=== PATIENT | male | born 1980 | race Caucasian/White ===

== ENCOUNTER 2017-08-25 08:56 | Outpatient (CLI) | payer MEDICARE, MEDICAID ==
[2017-08-25] MEDS ORDERED: Sodium Chloride 0.9% 15 ML NEB ONE (11:11)
[2017-08-25] MEDS ORDERED: Lidocaine 2% Jelly 5 ML TUBE ONE (11:11)
--- NOTE | 2017-08-25 11:57 | PRG ---
DATE OF SERVICE: 08/25/2017 HISTORY: Mr. Faizan Heath is a very pleasant 36-year-old gentleman previously seen in the [facility] for a wound subsequent to excision of a pilonidal cyst. Today, the patient presents with an ulceration of the dorsum of the right foot. The patient states that after wearing a pair of Western boots, he noted ecchymosis and erythema of the dorsum of his right foot when taking off his right boot in early July of this year. The patient states that the ecchymosis and erythema developed into an ulceration associated with eschar. The patient states he has been washing the ulceration with [place] soap and keeping the ulceration clean, dry, and covered with a sock. The patient states that he scheduled an appointment with Dr. Escalante for evaluation of the ulceration of the dorsum of the right foot. He states that at a subsequent visit at the time of his routine checkup, he was referred to the [facility]ound Center for further evaluation and treatment. PAST MEDICAL HISTORY: 1. Diabetes mellitus. 2. Hypertension. PAST SURGICAL HISTORY: Excision of pilonidal cyst on 06/27/[address] Luis Miguel Wisdom. MEDICATIONS: 1. [place]. 2. Abilify. 3. Zoloft. 4. Toprol. 5. Clonazepam. 6. Clozapine. PHYSICAL EXAMINATION: VITAL SIGNS: Temperature 98.0, pulse 107, respirations 19, blood pressure 134/ 89. Accu-Chek 497. EXTREMITIES: An ulceration over the dorsum of the right foot is present which measures approximately 2.0 x 2.8 cm. The entire wound bed is covered by dry stable eschar. No serous or purulent drainage is associated with the wound. No cellulitis of the right foot is appreciated. No maceration of the skin of the periwound is noted. A dorsalis pedis and posterior tibial pulse are both palpable on the right. No significant edema of the right foot is appreciated on exam today. ASSESSMENT AND PLAN: 1. Ulceration of dorsum of right foot as described above. Dressing changes of Silvercel, 4 x 4s, and Kerlix will be initiated today. These dressing changes are to be performed on a daily basis or alternatively three times per week after cleansing and irrigation. I will see Mr. Heath again in two weeks. No antibiotics will be prescribed today based upon the appearance of the wound. The patient understands and is in agreement with the preceding treatment plan. 2. Diabetes mellitus. The patient's Accu-Chek in clinic today is 497. The patient has been told that for optimal wound healing, his blood glucoses should remain below 150. 3. Hypertension. MTDD
== END 2017-08-25 08:57 | disposition home or self-care (01) ==
LOC: WCC 08:56
PROVIDERS: ATTEND Family Medicine
DX: E11.621 Type 2 diabetes mellitus with foot ulcer (principal); L97.519 Non-pressure chronic ulcer of other part of right foot with unspecified severity; I10 Essential (primary) hypertension
CPT/HCPCS: 97602; 99203; A4218; G0463

== ENCOUNTER 2017-09-08 08:51 | Outpatient (CLI) | payer MEDICARE, OTHER ==
--- NOTE | 2017-09-08 10:01 | PRG ---
DATE OF SERVICE: 09/08/2017 HISTORY: Mr. Faizan Heath is a very pleasant 36-year-old gentleman who presents to the [facility] Center f or evaluation of an ulceration of the dorsum of the right foot. The patient previously stated that a fter wearing a pair of Western boots, he noted ecchymosis and erythema of the dorsum of his right lillie t when taking off his right boot in early July of this year. The patient stated that the ecchymos is and erythema developed into an ulceration associated with eschar. The patient stated he had been washing the ulceration with [place]uro soap and keeping the ulceration clean, dry, and covered with a s ock prior to being seen in the Wound Center. Also prior to being seen in the Wound Center, the cari ent stated he scheduled an appointment with Dr. Escalante for evaluation of the ulceration of the dorsum of the right foot. He stated that at a subsequent visit with Dr. Escalante at time of his routine [facility], he was referred to the Wound Center for further evaluation and treatment. After being seen in [facility], dressing changes of Silvercel, 4 x 4s, and Kerlix were initiated. PHYSICAL EXAMINATION: VITAL SIGNS: Temperature 97.9, pulse 92, respirations 18, blood pressure 131/80. Accu-Chek 343. EXTREMITIES: An ulceration of the dorsum of the right foot is present which measures approximately 2 .7 x 2.0 cm. The dimensions of the wound at the time of the patient's last visit were approximately 2.8 x 2.0 cm. Almost the entire wound bed is covered by dry stable eschar. No serous or purulent dr santos is associated with the wound. No cellulitis of the right foot is appreciated. No maceration of the skin of the periwound is noted. Dorsalis pedis and posterior tibial pulse are both palpable o n the right. No significant edema of the right foot is present on exam today. ASSESSMENT AND PLAN: 1. Ulceration of dorsum of right foot as described above. Dressing changes of Silvercel, 4 x 4s, an d Kerlix will be continued on a daily basis or alternatively three times per week after cleansing and irrigation. I will see Mr. Heath again in 3 weeks. 2. Diabetes mellitus. The patient's Accu-Chek in clinic today is 343. The patient has been told th at for optimal wound healing, his blood glucoses should remain below 150. 3. Hypertension.
== END 2017-09-08 08:52 | disposition home or self-care (01) ==
LOC: WCC 08:51
PROVIDERS: ATTEND Family Medicine
DX: E11.621 Type 2 diabetes mellitus with foot ulcer (principal); L97.519 Non-pressure chronic ulcer of other part of right foot with unspecified severity; I10 Essential (primary) hypertension

== ENCOUNTER 2017-09-29 09:03 | Outpatient (CLI) | payer MEDICARE, OTHER ==
--- NOTE | 2017-09-29 10:18 | PRG ---
DATE OF SERVICE: 09/29/2017 HISTORY: Mr. Faizan Heath is a very pleasant 36-year-old gentleman who presents to the Wound Center f or evaluation of an ulceration of the dorsum of the right foot. The patient previously stated that a fter wearing a pair of Western boots, he noted ecchymosis and erythema of the dorsum of his right lillie t when taking off his right boot in early July of this year. The patient stated that the ecchymos is and erythema developed into an ulceration associated with eschar. The patient stated he had been washing the ulceration with [place] soap and keeping the ulceration clean, dry, and covered with a so ck prior to being seen in the Wound Center. Also, prior to being seen in the Wound Center, the patie nt stated he scheduled an appointment with Dr. Escalante for evaluation of the ulceration of the dorsum of the right foot. He stated that at a subsequent visit with Dr. Escalante, at the time of a routine eckup, he was referred to the Wound Center for further evaluation and treatment. After being seen in the Wound Center, dressing changes of Silvercel, 4 x 4s, and Kerlix were initiated. PHYSICAL EXAMINATION: VITAL SIGNS: Temperature 98.0, pulse 100, respirations 18, blood pressure 136/78. Accu-Chek 278. EXTREMITIES: An ulceration of the dorsum of the right foot is present which measures approximately 2 .2 x 1.4 cm. The dimensions of the wound at the time of the patient's last visit were approximately 2.7 x 2.0 cm. The wound is granulating. No purulent drainage is associated with the wound. No eryt debora of the skin surrounding the wound is present. No maceration of the skin of the periwound is not ed. A posterior tibial pulse is easily palpable on the right. No significant edema of the right lillie t is present on exam today. ASSESSMENT AND PLAN: 1. Ulceration of dorsum of right foot as described above. Dressing changes of Silvercel, 4 x 4s, an d Kerlix will be continued on a daily basis or alternatively three times per week after cleansing and irrigation. I will see Mr. Heath again in two weeks. 2. Diabetes mellitus. The patient's Accu-Chek in clinic today is 278. The patient has been reminde d that for optimal wound healing, his blood glucoses should remain below 150. 3. Hypertension.
[2017-09-30] MEDS ORDERED: Sodium Chloride 0.9% 15 ML NEB ONE (12:32)
== END 2017-09-29 09:04 | disposition home or self-care (01) ==
LOC: WCC 09:03
PROVIDERS: ATTEND Family Medicine
DX: E11.621 Type 2 diabetes mellitus with foot ulcer (principal); L97.519 Non-pressure chronic ulcer of other part of right foot with unspecified severity; I10 Essential (primary) hypertension
CPT/HCPCS: 36416; 97602

== ENCOUNTER 2017-10-19 09:13 | Outpatient (CLI) | payer MEDICARE, MEDICAID ==
--- NOTE | 2017-10-19 11:06 | PRG ---
DATE OF SERVICE: 10/19/2017 HISTORY: Mr. Faizan Heath is a very pleasant 36-year-old gentleman who presents to the Wound Center for evaluation of an ulceration of the dorsum of the right foot. The patient previously stated that after wearing a pair of Western boots he noted ecchymosis and erythema of the dorsum of his right foot when taking off his right boot in early July of this year. The patient stated that the ecchymosis and erythema developed into an ulceration associated with eschar. The patient stated he had been washing the ulceration with castile soap and keeping the ulceration clean, dry, and covered with a sock prior to being seen in the Wound Center. Also prior to being seen in the Wound Center, the patient stated, he scheduled an appointment with Dr. Escalante for evaluation of the ulceration of the dorsum of the right foot. He stated that at a subsequent visit with Dr. Escalante at the time of a routine checkup, he was referred to the Wound Center for further evaluation and treatment. After being seen in the Wound Center, dressing changes of Silvercel, 4 x 4s, and Kerlix were initiated. The patient presents to clinic today with his ulceration open to air. He states that he has had no drainage associated with his wound for "a long time." PHYSICAL EXAMINATION: VITAL SIGNS: Temperature 98.3, pulse 102, respirations 18, blood pressure 139/ 89. Accu-Chek 434. EXTREMITIES: The ulceration of the dorsum of the right foot has healed completely. A posterior tibial pulse is easily palpable on the right. No significant edema of the right foot is present on exam today. ASSESSMENT AND PLAN: 1. Ulceration of dorsum of right foot. As stated above, the ulceration has completely healed. Mr. Heath will be discharged from clinic today with follow up on a p.r.n. basis. 2. Diabetes mellitus. The patient's Accu-Chek in clinic today is 434. 3. Hypertension. MTDD
== END 2017-10-19 09:14 | disposition home or self-care (01) ==
LOC: WCC 09:13
PROVIDERS: ATTEND Family Medicine
DX: E11.621 Type 2 diabetes mellitus with foot ulcer (principal); L97.519 Non-pressure chronic ulcer of other part of right foot with unspecified severity; I10 Essential (primary) hypertension
CPT/HCPCS: 97602

== ENCOUNTER 2023-05-24 16:41 | Inpatient (IN) | payer MEDICARE, MEDICAID ==
[2023-05-24 17:18] LABS: Hematocrit 44.3 % (42.0-52.0); Hemoglobin 14.7 g/dL (14.0-18.0); Mean Corpuscular HGB CONC 33.2 g/dL (32.0-36.0); Mean Corpuscular Hemoglobin 28.7 pg (27.0-31.0); Mean Corpuscular Volume 86.4 fl (78.0-98.0); Mean Platelet Volume 11.5 fL (7.4-10.4); Platelet Count 297 10x3/uL (130-400); RBC Distribution Width 13.9 % (11.5-14.5); Red Blood Cell (RBC) Count 5.13 mill/uL (4.70-6.10); White Blood Cell (WBC) Count 31.3 10x3/uL (4.8-10.8)
[2023-05-24 17:19] LABS: Delete Auto Diff?? YES; Manual Diff?? YES
[2023-05-24 17:24] LABS: Actual Bicarbonate (HCO3v) 23.3 mEq/L (22-28); Base Excess -1.7 mEq/L (-2.0 to +3.0); Calcium, Ionized (venous) 1.05 mmol/L (1.16-1.32); Chloride (VBG) 92 mmol/L (98-106); Hematocrit-VBG 44 % (42.0-52.0); Potassium (VBG) 4.56 mmol/L (3.70-5.30); Sodium 129 mmol/L (133-146); pH (venous) 7.379 (7.32-7.43)
[2023-05-24] MEDS ORDERED: Sodium Chloride 0.9% 100 ML ONE (17:26)
[2023-05-24] MEDS ORDERED: Cefepime 2 GM VIAL ONE (17:26)
[2023-05-24 17:43] LABS: Anisocytosis SLIGHT = 6-15 cells HPF (0-5); Band 19 % (5-11); Lymphocytes 2 % (21-51); Monocytes 4 % (0-10); Neutrophil 75 % (42-75); Platelet Adequacy Comment Platelets Normal; Polychromasia SLIGHT = 2-3 cells HPF (0-2); RBC Morphology Within Normal Limits; Total Cell Count 100
[2023-05-24] MEDS ORDERED: Clindamycin/D5W 900 MG in Premix 1 BAG IVPB SCH (17:45)
[2023-05-24] MEDS ORDERED: Vancomycin 1 GM/200 ML (FROZEN) BAG ONE (17:47)
[2023-05-24] MEDS ORDERED: Ondansetron PF 4 MG/2 ML Vial ONE ×2 (17:47→20:59)
[2023-05-24] MEDS ORDERED: Morphine 4 MG/ML VIAL ONE (17:47)
[2023-05-24 17:49] LABS: ALT (SGPT) 44 U/L (8-55); AST (SGOT) 38 U/L (5-34); Albumin 3.3 g/dL (3.5-5.0); Alkaline Phosphatase 203 U/L (40-110); Anion Gap 21 mmol/L (10-20); BUN (Urea Nitrogen) 16 mg/dL (8.9-20.6); Bilirubin, Total 0.6 mg/dL (0.2-1.2); Calc. Creatinine Clearance 0 mL/min (70-130); Calcium 9.5 mg/dL (7.8-10.44); Carbon Dioxide 21 mmol/L (22-29); Chloride 91 mmol/L (98-107); Estimated GFR 108; Glucose 548 mg/dL (70-105); Lipase 29 U/L (8-78); Potassium 4.6 mmol/L (3.5-5.1); Protein, Total 7.3 g/dL (6.0-8.3); Sodium 128 mmol/L (136-145)
[2023-05-24 18:03] LABS: Bacteria/HPF None Seen HPF (None Seen); Bilirubin Negative (Negative); Blood, Urine Negative (Negative); CAUTI Indications for Culture Urological Procedure; Clarity Clear (Clear); Glucose, Urine (Dipstick) Greater than 1000 mg/dL (Negative); Ketone, Urine 40 mg/dL (Negative); Leukocyte Negative Leu/uL (Negative); Nitrite Negative (Negative); Protein, Urine (Dipstick) 20 mg/dL (Neg-Trace); RBC/HPF 0-3 HPF (0-3); Specific Gravity, Urine 1.021 (1.002-1.036); Squamous Epithelial None Seen HPF (0-3); Urobilinogen Normal mg/dL (Less than 2); WBC/HPF 0-3 HPF (0-3)
[2023-05-24 18:05] LABS: Urine Culture Reflex Yes Yes
[2023-05-24] MEDS ORDERED: Acetaminophen 325 MG TAB PO PRN (18:13)
[2023-05-24] MEDS ORDERED: Ondansetron PF 4 MG/2 ML Vial IVP PRN (18:13)
[2023-05-24] MEDS ORDERED: Dextrose 5 %-0.45 % NaCl 1,000 ML IV PRN (18:16)
[2023-05-24] MEDS ORDERED: NS 0.9% w/ 20 MEQ KCL 1,000 ML IV PRN ×2 (18:16)
[2023-05-24] MEDS ORDERED: Sodium Chloride 0.9% 1,000 ML IV PRN ×4 (18:16)
[2023-05-24] MEDS ORDERED: Electrolyte Replacement Protocol 1 EACH IVPB SCH (18:16)
[2023-05-24] MEDS ORDERED: Dextrose 50% Abboject 50 ML SYRINGE SLOW IVP PRN (18:16)
[2023-05-24] MEDS ORDERED: HUMULIN R 100 UNITS in Sodium Chloride 0.9% 100 ML IVPB SCH (18:30)
[2023-05-24] MEDS ORDERED: INSULIN REGULAR IN 0.9 % NACL 100 UNITS/100 ML BAG ONE (18:42)
[2023-05-24] MEDS ORDERED: NS 0.9% w/ 20 MEQ KCL 1,000 ML ONE (19:29)
[2023-05-24] MEDS ORDERED: Norepinephrine 4 MG/4 ML VIAL ONE (20:30)
[2023-05-24] MEDS ORDERED: Vasopressin 20 UNITS/ML VIAL ONE (20:30)
[2023-05-24] MEDS ORDERED: Fentanyl 250 MCG/5 ML VIAL ONE (20:31)
[2023-05-24] MEDS ORDERED: HYDROmorphone 0.5 MG/0.5 ML SYRINGE ONE (20:31)
[2023-05-24 20:40] LABS: Lactic Acid 2.1 mmol/L (0.5-2.2)
[2023-05-24] MEDS ORDERED: Albumin 5% 1,000 ML ONE (20:52)
[2023-05-24] MEDS ORDERED: Rocuronium Bromide 10 MG/ML (10ML VIAL) ONE (20:59)
[2023-05-24] MEDS ORDERED: PROPOFOL 200 MG/20 ML VIAL ONE (20:59)
[2023-05-24] MEDS ORDERED: Lidocaine 1% PF 5 ML VIAL ONE (20:59)
[2023-05-24] MEDS ORDERED: Succinylcholine 200 MG/10 ml SYRINGE FS ONE (20:59)
[2023-05-24 21:17] LABS: INR-International Normal Ratio 1.4; PTT 35.9 sec (22.9-36.1); Prothrombin Time 17.9 sec (12.0-14.7)
[2023-05-24 21:24] LABS: Anion Gap 15 mmol/L (10-20); BUN (Urea Nitrogen) 16 mg/dL (8.9-20.6); Calc. Creatinine Clearance 0 mL/min (70-130); Calcium 8.5 mg/dL (7.8-10.44); Carbon Dioxide 21 mmol/L (22-29); Chloride 95 mmol/L (98-107); Estimated GFR 114; Sodium 127 mmol/L (136-145)
[2023-05-24 21:32] LABS: Glucose 549 mg/dL (70-105)
[2023-05-24] MEDS ORDERED: Piperacillin/Tazobactam 3.375 GM in Sodium Chloride 0.9% 100 ML IVPB SCH (21:45)
[2023-05-24] MEDS ORDERED: SUGAMMADEX SODIUM 200 MG/2 ML VIAL ONE (22:35)
[2023-05-24] MEDS ORDERED: Ondansetron HCl/PF 4 MG/2 ML Vial IVP PRN (23:22)
[2023-05-24] MEDS ORDERED: Morphine 2 MG/ML VIAL SLOW IVP PRN (23:28)
[2023-05-25 00:56] LABS: Anion Gap 19 mmol/L (10-20); BUN (Urea Nitrogen) 15 mg/dL (8.9-20.6); Calc. Creatinine Clearance 193 mL/min (70-130); Calcium 8.5 mg/dL (7.8-10.44); Carbon Dioxide 19 mmol/L (22-29); Chloride 101 mmol/L (98-107); Estimated GFR 115; Glucose 261 mg/dL (70-105); Potassium 4.2 mmol/L (3.5-5.1); Sodium 135 mmol/L (136-145)
[2023-05-25] MEDS: Acetaminophen 325 MG TAB PO SCH ×4 (01:00→17:30)
[2023-05-25] MEDS ORDERED: Piperacillin/Tazobactam 3.375 GM in Sodium Chloride 0.9% 100 ML IVPB SCH (01:30)
[2023-05-25] MEDS: D5 1/2 NS w/20 mEq KCL 1,000 ML IV PRN ×3 (02:00→09:46)
[2023-05-25] MEDS: Vancomycin (BATCH) 1.75 GM in Premix 1 BAG IVPB SCH ×3 (03:01→17:30)
[2023-05-25 04:39] LABS: Mean Corpuscular HGB CONC 32.6 g/dL (32.0-36.0); Mean Corpuscular Hemoglobin 28.8 pg (27.0-31.0); Mean Corpuscular Volume 88.3 fl (78.0-98.0); Mean Platelet Volume 11.1 fL (7.4-10.4); Platelet Count 225 10x3/uL (130-400); RBC Distribution Width 14.1 % (11.5-14.5); White Blood Cell (WBC) Count 30.3 10x3/uL (4.8-10.8)
[2023-05-25 04:54] LABS: Hemoglobin 11.5 g/dL (14.0-18.0)
[2023-05-25 04:55] LABS: Delete Auto Diff?? YES; Hematocrit 35.3 % (42.0-52.0); Manual Diff?? YES
[2023-05-25 05:03] LABS: Hemoglobin A1c 8.9 % (4.0-6.0)
[2023-05-25] MEDS ORDERED: Sevoflurane 250 ML INH ANEST BOTTLE ONE (05:20)
[2023-05-25 05:37] LABS: ALT (SGPT) 30 U/L (8-55); AST (SGOT) 22 U/L (5-34); Albumin 2.8 g/dL (3.5-5.0); Alkaline Phosphatase 138 U/L (40-110); Anion Gap 14 mmol/L (10-20); BUN (Urea Nitrogen) 14 mg/dL (8.9-20.6); Bilirubin, Total 0.8 mg/dL (0.2-1.2); Calc. Creatinine Clearance 221 mL/min (70-130); Calcium 7.8 mg/dL (7.8-10.44); Carbon Dioxide 22 mmol/L (22-29); Chloride 103 mmol/L (98-107); Estimated GFR 120; Globulin 2.6 g/dL (2.4-3.5); Glucose 187 mg/dL (70-105); Potassium 4.4 mmol/L (3.5-5.1); Protein, Total 5.4 g/dL (6.0-8.3); Sodium 135 mmol/L (136-145)
[2023-05-25 05:38] LABS: Band 12 % (5-11); CellaVision Operator ID lab.sh2; Dohle Bodies SLIGHT; Lymphocytes 2 % (21-51); Macrocytosis SLIGHT = 6-15 cells HPF (0-5); Monocytes 10 % (0-10); Neutrophil 76 % (42-75); Platelet Adequacy Comment Platelets Normal; Polychromasia SLIGHT = 2-3 cells HPF (0-2); Total Cell Count 101
[2023-05-25] MEDS ORDERED: Cefepime 2 GM in Sodium Chloride 0.9% 100 ML IVPB SCH (06:00)
[2023-05-25] MEDS: Piperacillin/Tazobactam 3.375 GM in Sodium Chloride 0.9% 100 ML IVPB SCH ×3 (06:59→22:01)
[2023-05-25] MEDS: Losartan 25 MG TAB PO SCH (09:11)
[2023-05-25] MEDS ORDERED: PROPOFOL 20 ML ONE (09:17)
[2023-05-25] MEDS ORDERED: Ondansetron PF 4 MG/2 ML Vial ONE ×2 (09:19→11:30)
[2023-05-25] MEDS ORDERED: Rocuronium Bromide 10 MG/ML (10ML VIAL) ONE ×2 (09:19→11:30)
[2023-05-25] MEDS ORDERED: Lidocaine 1% PF 5 ML VIAL ONE ×2 (09:19→11:30)
[2023-05-25] MEDS ORDERED: Succinylcholine 200 MG/10 ml SYRINGE FS ONE ×2 (09:19→11:30)
[2023-05-25] MEDS ORDERED: fentaNYL PF 100 MCG/2 ML SYRINGE ONE (10:52)
[2023-05-25] MEDS ORDERED: Midazolam HCl 2 mg/2 ml Vial ONE (10:52)
[2023-05-25] MEDS ORDERED: PROPOFOL 200 MG/20 ML VIAL ONE (11:30)
[2023-05-25] MEDS ORDERED: Glycopyrrolate 0.2 MG/ML 5 ML SYRINGE ONE ×2 (11:30→12:37)
[2023-05-25] MEDS ORDERED: NEOSTIGMINE 3 MG/3 ML SYR 3 MG/3 ML SYRINGE ONE ×2 (11:30→12:37)
[2023-05-25] MEDS ORDERED: Sodium Hypochlorite 0.5% 473 ML BOT TOP SCH (12:15)
[2023-05-25] MEDS ORDERED: fentaNYL 50 mcg/mL 1 mL Vial ONE (13:48)
[2023-05-25] MEDS ORDERED: Insulin Glargine 30 UNITS/0.3 ML VIAL SC SCH (14:41)
[2023-05-25] MEDS: Sodium Chloride 0.9% 1,000 ML IV SCH (15:22)
[2023-05-25 17:18] LABS: Vancomycin, Trough 23.7 ug/mL
[2023-05-25] MEDS ORDERED: Glucagon 1 MG/ML KIT IM PRN (17:36)
[2023-05-25] MEDS ORDERED: Dextrose 5% in Water 1,000 ML IV PRN (17:36)
[2023-05-25] MEDS: HumaLOG 300 UNITS/3 ML VIAL SC PRN (18:13)
[2023-05-25] MEDS: Insulin Glargine 30 UNITS/0.3 ML VIAL SC SCH (22:00)
[2023-05-26] MEDS: Acetaminophen 325 MG TAB PO SCH ×5 (00:34→22:50)
[2023-05-26] MEDS: Vancomycin (BATCH) 1.5 GM in Premix 1 BAG IVPB SCH ×2 (02:22→13:00)
[2023-05-26 04:11] LABS: Hematocrit 30.6 % (42.0-52.0); Hemoglobin 9.5 g/dL (14.0-18.0); Mean Corpuscular Hemoglobin 28.4 pg (27.0-31.0); Mean Platelet Volume 11.6 fL (7.4-10.4); Platelet Count 204 10x3/uL (130-400); RBC Distribution Width 14.5 % (11.5-14.5); Red Blood Cell (RBC) Count 3.35 mill/uL (4.70-6.10); White Blood Cell (WBC) Count 22.3 10x3/uL (4.8-10.8)
[2023-05-26 04:13] LABS: Manual Diff?? YES; Mean Corpuscular Volume 91.3 fl (78.0-98.0)
[2023-05-26 04:14] LABS: Delete Auto Diff?? YES
[2023-05-26] MEDS: Sodium Chloride 0.9% 1,000 ML IV SCH ×2 (04:24→17:09)
[2023-05-26 04:41] LABS: ALT (SGPT) 44 U/L (8-55); AST (SGOT) 47 U/L (5-34); Albumin 2.3 g/dL (3.5-5.0); Alkaline Phosphatase 184 U/L (40-110); Anion Gap 13 mmol/L (10-20); BUN (Urea Nitrogen) 8 mg/dL (8.9-20.6); Bilirubin, Total 0.8 mg/dL (0.2-1.2); Calc. Creatinine Clearance 215 mL/min (70-130); Calcium 7.4 mg/dL (7.8-10.44); Carbon Dioxide 18 mmol/L (22-29); Chloride 105 mmol/L (98-107); Estimated GFR 119; Globulin 2.6 g/dL (2.4-3.5); Potassium 4.2 mmol/L (3.5-5.1); Protein, Total 4.9 g/dL (6.0-8.3); Sodium 132 mmol/L (136-145)
[2023-05-26 04:48] LABS: Glucose 462 mg/dL (70-105)
[2023-05-26 04:49] LABS: Band 29 % (5-11); CellaVision Operator ID LAB.CLH1; Eosinophils 1 % (0-10); Hypochromia SLIGHT = 6-15 cells HPF (0-5); Lymphocytes 4 % (21-51); Metamyelocyte 1 % (0-0); Monocytes 3 % (0-10); Neutrophil 61 % (42-75); Platelet Adequacy Comment Platelets Normal; Polychromasia SLIGHT = 2-3 cells HPF (0-2); Total Cell Count 101
[2023-05-26] MEDS: HumaLOG 300 UNITS/3 ML VIAL SC PRN ×4 (05:21→17:09)
[2023-05-26] MEDS: Piperacillin/Tazobactam 3.375 GM in Sodium Chloride 0.9% 100 ML IVPB SCH ×3 (05:58→22:51)
[2023-05-26] MEDS: Sodium Hypochlorite 0.25% Solution 480 ML BOT TOP SCH (07:08)
[2023-05-26] MEDS: Insulin Glargine 30 UNITS/0.3 ML VIAL SC SCH (07:09)
[2023-05-26] MEDS: Losartan 25 MG TAB PO SCH (07:09)
[2023-05-26] MEDS ORDERED: Insulin Glargine 30 UNITS/0.3 ML VIAL SC SCH ×3 (09:00→21:00)
[2023-05-26] MEDS: Senokot S 8.6-50 MG TAB PO SCH ×2 (10:05→20:04)
[2023-05-26] MEDS: Polyethylene Glycol 3350 17 GM Packet PO SCH (10:17)
[2023-05-26] MEDS: Morphine 4 MG/ML VIAL SLOW IVP PRN ×3 (12:07→22:53)
[2023-05-27] MEDS ORDERED: Ketorolac Tromethamine 30 MG/ML VIAL IVP PRN (00:14)
[2023-05-27] MEDS: Vancomycin (BATCH) 1.5 GM in Premix 1 BAG IVPB SCH ×2 (01:23→14:43)
[2023-05-27] MEDS: Morphine 4 MG/ML VIAL SLOW IVP PRN ×4 (04:02→21:16)
[2023-05-27 04:52] LABS: Hematocrit 30.6 % (42.0-52.0); Hemoglobin 9.6 g/dL (14.0-18.0); Mean Corpuscular HGB CONC 31.4 g/dL (32.0-36.0); Mean Corpuscular Hemoglobin 28.4 pg (27.0-31.0); Mean Corpuscular Volume 90.5 fl (78.0-98.0); Mean Platelet Volume 11.9 fL (7.4-10.4); Platelet Count 227 10x3/uL (130-400); Red Blood Cell (RBC) Count 3.38 mill/uL (4.70-6.10); White Blood Cell (WBC) Count 18.7 10x3/uL (4.8-10.8)
[2023-05-27 05:16] LABS: Delete Auto Diff?? YES; Manual Diff?? YES
[2023-05-27] MEDS: Piperacillin/Tazobactam 3.375 GM in Sodium Chloride 0.9% 100 ML IVPB SCH ×2 (05:16→16:31)
[2023-05-27] MEDS: Sodium Chloride 0.9% 1,000 ML IV SCH ×2 (05:16→12:29)
[2023-05-27] MEDS: Acetaminophen 325 MG TAB PO SCH ×3 (05:17→17:02)
[2023-05-27 05:18] LABS: Anion Gap 12 mmol/L (10-20); BUN (Urea Nitrogen) 7 mg/dL (8.9-20.6); Calc. Creatinine Clearance 248 mL/min (70-130); Calcium 7.6 mg/dL (7.8-10.44); Carbon Dioxide 18 mmol/L (22-29); Chloride 105 mmol/L (98-107); Estimated GFR 122; Glucose 223 mg/dL (70-105); Sodium 131 mmol/L (136-145)
[2023-05-27] MEDS ORDERED: EPINEPHrine 1 MG/ML VIAL ONE (06:43)
[2023-05-27] MEDS ORDERED: Bupivacaine 0.25% HCL 30 ML VIAL ONE (06:44)
[2023-05-27] MEDS ORDERED: Dexmedetomidine 200 MCG/2 ML VIAL ONE (07:07)
[2023-05-27] MEDS ORDERED: Ketamine In 0.9 % NaCl 50 MG/5 ML SYRINGE ONE (07:07)
[2023-05-27] MEDS ORDERED: PROPOFOL 20 ML ONE (07:11)
[2023-05-27] MEDS ORDERED: fentaNYL PF 100 MCG/2 ML SYRINGE ONE ×3 (07:11→09:27)
[2023-05-27] MEDS: Senokot S 8.6-50 MG TAB PO SCH ×2 (07:16→21:21)
[2023-05-27] MEDS: Polyethylene Glycol 3350 17 GM Packet PO SCH (07:16)
[2023-05-27] MEDS: Losartan 25 MG TAB PO SCH (07:16)
[2023-05-27] MEDS: Sodium Hypochlorite 0.25% Solution 480 ML BOT TOP SCH (07:16)
[2023-05-27] MEDS ORDERED: HYDROmorphone 2 MG/ML VIAL SLOW IVP PRN (07:25)
[2023-05-27] MEDS ORDERED: Promethazine HCl 25 MG/ML VIAL IM PRN (07:25)
[2023-05-27] MEDS ORDERED: Ondansetron HCl/PF 4 MG/2 ML Vial IVP PRN (07:25)
[2023-05-27] MEDS ORDERED: PROPOFOL 200 MG/20 ML VIAL ONE (07:34)
[2023-05-27] MEDS ORDERED: Rocuronium Bromide 10 MG/ML (10ML VIAL) ONE ×2 (07:34→08:04)
[2023-05-27] MEDS ORDERED: Ondansetron PF 4 MG/2 ML Vial ONE ×2 (07:34→08:04)
[2023-05-27] MEDS ORDERED: Glycopyrrolate 0.2 MG/ML 5 ML SYRINGE ONE ×2 (07:34→08:50)
[2023-05-27] MEDS ORDERED: NEOSTIGMINE 3 MG/3 ML SYR 3 MG/3 ML SYRINGE ONE ×2 (07:34→08:50)
[2023-05-27 08:04] LABS: Band 9 % (5-11); CellaVision Operator ID LAB.GE; Eosinophils 1 % (0-10); Lymphocytes 3 % (21-51); Monocytes 1 % (0-10); Myelocyte 1 % (0-0); Neutrophil 85 % (42-75); Platelet Adequacy Comment Platelets Normal; Polychromasia SLIGHT = 2-3 cells HPF (0-2); Total Cell Count 98
[2023-05-27] MEDS ORDERED: Non-Formulary Item 1 EACH (Lithium Carbonate [Lithium Carbonate] 300 MG Tablet) PO SCH (09:00)
[2023-05-27] MEDS ORDERED: Non-Formulary Item 1 EACH (Sertraline Hcl [Zoloft] 50 MG Tab) PO SCH (09:00)
[2023-05-27] MEDS ORDERED: Meperidine HCl/PF 25 MG/ML VIAL ONE (09:21)
[2023-05-27] MEDS ORDERED: HYDROmorphone 0.5 MG/0.5 ML SYRINGE ONE (09:42)
[2023-05-27] MEDS ORDERED: fentaNYL 50 mcg/mL 1 mL Vial ONE (10:23)
[2023-05-27] MEDS: Lithium Carbonate 150 MG CAP PO SCH ×2 (10:50→21:20)
[2023-05-27] MEDS: Sertraline 25 MG TAB PO SCH (10:50)
[2023-05-27] MEDS: Aripiprazole 15 MG TAB PO SCH (10:50)
[2023-05-27] MEDS: Insulin Glargine 30 UNITS/0.3 ML VIAL SC SCH ×2 (10:50→21:21)
[2023-05-27] MEDS: HumaLOG 300 UNITS/3 ML VIAL SC PRN ×3 (12:25→21:19)
[2023-05-27] MEDS: Ketorolac Tromethamine 30 MG/ML VIAL IVP SCH (15:11)
[2023-05-27] MEDS ORDERED: CLOZAPINE 25 MG PO SCH (21:00)
[2023-05-27] MEDS ORDERED: Non-Formulary Item 1 EACH (Fenofibrate [Fenofibrate] 150 MG Capsule) PO SCH (21:00)
[2023-05-27] MEDS: Fenofibrate Nanocrystallized 145 MG TAB PO SCH (21:21)
[2023-05-27] MEDS: Glimepiride 4 MG TAB PO SCH (21:21)
[2023-05-28] MEDS: Acetaminophen 325 MG TAB PO SCH ×4 (00:33→17:27)
[2023-05-28] MEDS: Piperacillin/Tazobactam 3.375 GM in Sodium Chloride 0.9% 100 ML IVPB SCH ×3 (00:34→16:18)
[2023-05-28] MEDS: Morphine 4 MG/ML VIAL SLOW IVP PRN ×3 (02:23→11:53)
[2023-05-28] MEDS: Vancomycin (BATCH) 1.75 GM in Premix 1 BAG IVPB SCH ×2 (02:48→14:01)
[2023-05-28] MEDS: Sodium Chloride 0.9% 1,000 ML IV SCH ×2 (02:49→22:06)
[2023-05-28 04:13] LABS: Anion Gap 10 mmol/L (10-20); BUN (Urea Nitrogen) 8 mg/dL (8.9-20.6); Calc. Creatinine Clearance 246 mL/min (70-130); Calcium 7.9 mg/dL (7.8-10.44); Carbon Dioxide 23 mmol/L (22-29); Chloride 107 mmol/L (98-107); Estimated GFR 124; Glucose 219 mg/dL (70-105); Potassium 3.6 mmol/L (3.5-5.1); Sodium 136 mmol/L (136-145)
[2023-05-28] MEDS: HumaLOG 300 UNITS/3 ML VIAL SC PRN ×2 (06:26→11:01)
[2023-05-28] MEDS: Polyethylene Glycol 3350 17 GM Packet PO SCH (08:02)
[2023-05-28] MEDS: Senokot S 8.6-50 MG TAB PO SCH ×2 (08:02→20:25)
[2023-05-28] MEDS: Insulin Glargine 30 UNITS/0.3 ML VIAL SC SCH ×2 (08:02→20:27)
[2023-05-28] MEDS: Lithium Carbonate 150 MG CAP PO SCH ×2 (08:03→20:24)
[2023-05-28] MEDS: Losartan 25 MG TAB PO SCH (08:03)
[2023-05-28] MEDS: Sertraline 25 MG TAB PO SCH (08:03)
[2023-05-28] MEDS: Aripiprazole 15 MG TAB PO SCH (08:04)
[2023-05-28] MEDS ORDERED: FLU VACC QS2023-24(6MOS UP)/PF 60 MCG/0.5 ML SYRINGE IM ONE (09:00)
[2023-05-28] MEDS: Sodium Hypochlorite 0.25% Solution 480 ML BOT TOP SCH (12:28)
[2023-05-28] MEDS: HYDROcodone/Acetaminophen 5/325 mg Tablet PO PRN ×2 (13:56→18:39)
[2023-05-28] MEDS: Ketorolac Tromethamine 30 MG/ML VIAL IVP SCH (17:27)
[2023-05-28] MEDS: Glimepiride 4 MG TAB PO SCH (20:24)
[2023-05-28] MEDS: Fenofibrate Nanocrystallized 145 MG TAB PO SCH (20:24)
[2023-05-29] MEDS: Piperacillin/Tazobactam 3.375 GM in Sodium Chloride 0.9% 100 ML IVPB SCH ×3 (00:48→16:01)
[2023-05-29] MEDS: Acetaminophen 325 MG TAB PO SCH ×4 (00:51→17:22)
[2023-05-29] MEDS: HYDROcodone/Acetaminophen 5/325 mg Tablet PO PRN ×3 (01:10→20:01)
[2023-05-29] MEDS: Morphine 4 MG/ML VIAL SLOW IVP PRN ×3 (01:52→22:15)
[2023-05-29] MEDS: Vancomycin (BATCH) 1.75 GM in Premix 1 BAG IVPB SCH ×2 (02:33→14:40)
[2023-05-29 04:26] LABS: Anion Gap 13 mmol/L (10-20); BUN (Urea Nitrogen) 8 mg/dL (8.9-20.6); Calc. Creatinine Clearance 298 mL/min (70-130); Calcium 7.6 mg/dL (7.8-10.44); Carbon Dioxide 22 mmol/L (22-29); Chloride 110 mmol/L (98-107); Estimated GFR 128; Glucose 120 mg/dL (70-105); Potassium 3.3 mmol/L (3.5-5.1); Sodium 142 mmol/L (136-145)
[2023-05-29] MEDS: Senokot S 8.6-50 MG TAB PO SCH ×2 (07:48→20:03)
[2023-05-29] MEDS: Losartan 25 MG TAB PO SCH (07:48)
[2023-05-29] MEDS: Potassium Chloride 20 MEQ in Premix 1 BAG IVPB SCH ×2 (07:48→10:17)
[2023-05-29] MEDS: Sodium Hypochlorite 0.25% Solution 480 ML BOT TOP SCH (07:48)
[2023-05-29] MEDS: Polyethylene Glycol 3350 17 GM Packet PO SCH (07:48)
[2023-05-29] MEDS: Insulin Glargine 30 UNITS/0.3 ML VIAL SC SCH ×2 (07:48→20:03)
[2023-05-29] MEDS: Sertraline 25 MG TAB PO SCH (07:49)
[2023-05-29] MEDS: Lithium Carbonate 150 MG CAP PO SCH ×2 (07:49→20:03)
[2023-05-29] MEDS: Aripiprazole 15 MG TAB PO SCH (07:53)
[2023-05-29] MEDS ORDERED: Ondansetron PF 4 MG/2 ML Vial ONE ×2 (12:16→12:48)
[2023-05-29] MEDS ORDERED: Dexmedetomidine 200 MCG/2 ML VIAL ONE (12:16)
[2023-05-29] MEDS ORDERED: Rocuronium Bromide 10 MG/ML (10ML VIAL) ONE ×2 (12:16→12:48)
[2023-05-29] MEDS ORDERED: fentaNYL PF 100 MCG/2 ML SYRINGE ONE (12:16)
[2023-05-29] MEDS ORDERED: PROPOFOL 20 ML ONE (12:16)
[2023-05-29] MEDS ORDERED: Dexamethasone 4 mg/ml Vial ONE (12:16)
[2023-05-29] MEDS ORDERED: Morphine 4 MG/ML VIAL ONE (12:27)
[2023-05-29] MEDS ORDERED: PHENYLEPHRINE-NS 100 MCG/ML 10 ML SYRINGE ONE ×2 (12:48→14:28)
[2023-05-29] MEDS ORDERED: Lidocaine 1% PF 5 ML VIAL ONE (12:48)
[2023-05-29] MEDS ORDERED: NEOSTIGMINE 3 MG/3 ML SYR 3 MG/3 ML SYRINGE ONE ×2 (12:48→14:47)
[2023-05-29] MEDS ORDERED: PROPOFOL 200 MG/20 ML VIAL ONE (12:48)
[2023-05-29] MEDS ORDERED: Glycopyrrolate 0.2 MG/ML 5 ML SYRINGE ONE ×2 (12:48→14:47)
[2023-05-29] MEDS ORDERED: Sodium Hypochlorite 0.5% 473 ML BOT TOP SCH (14:15)
[2023-05-29] MEDS ORDERED: Ondansetron HCl/PF 4 MG/2 ML Vial IVP PRN (15:09)
[2023-05-29] MEDS ORDERED: HYDROmorphone 2 MG/ML VIAL SLOW IVP PRN (15:09)
[2023-05-29] MEDS ORDERED: Promethazine HCl 25 MG/ML VIAL IM PRN (15:09)
[2023-05-29] MEDS ORDERED: HYDROmorphone 0.5 MG/0.5 ML SYRINGE ONE (15:10)
[2023-05-29] MEDS ORDERED: fentaNYL 50 mcg/mL 1 mL Vial ONE ×2 (15:17→15:28)
[2023-05-29] MEDS: Ketorolac Tromethamine 30 MG/ML VIAL IVP SCH (15:24)
[2023-05-29] MEDS: Sodium Chloride 0.9% 1,000 ML IV SCH (16:00)
[2023-05-29] MEDS ORDERED: Vancomycin (BATCH) 1.75 GM in Premix 1 BAG IVPB SCH (16:00)
[2023-05-29] MEDS: Fenofibrate Nanocrystallized 145 MG TAB PO SCH (20:03)
[2023-05-29] MEDS: Glimepiride 4 MG TAB PO SCH (20:03)
[2023-05-30] MEDS: Acetaminophen 325 MG TAB PO SCH ×5 (00:38→22:36)
[2023-05-30] MEDS: Piperacillin/Tazobactam 3.375 GM in Sodium Chloride 0.9% 100 ML IVPB SCH ×3 (01:10→17:14)
[2023-05-30] MEDS: Vancomycin (BATCH) 1.75 GM in Premix 1 BAG IVPB SCH ×2 (01:11→14:34)
[2023-05-30] MEDS: HYDROcodone/Acetaminophen 5/325 mg Tablet PO PRN ×2 (02:37→07:50)
[2023-05-30 04:03] LABS: Hematocrit 30.7 % (42.0-52.0); Hemoglobin 9.5 g/dL (14.0-18.0); Mean Corpuscular HGB CONC 30.9 g/dL (32.0-36.0); Mean Corpuscular Hemoglobin 28.5 pg (27.0-31.0); Mean Corpuscular Volume 92.2 fl (78.0-98.0); Mean Platelet Volume 9.6 fL (7.4-10.4); Platelet Count 461 10x3/uL (130-400); RBC Distribution Width 14.3 % (11.5-14.5); Red Blood Cell (RBC) Count 3.33 mill/uL (4.70-6.10); White Blood Cell (WBC) Count 15.9 10x3/uL (4.8-10.8)
[2023-05-30 04:10] LABS: Delete Auto Diff?? YES; Manual Diff?? YES
[2023-05-30 04:55] LABS: Band 5 % (5-11); CellaVision Operator ID lab.abc; Eosinophils 4 % (0-10); Lymphocytes 8 % (21-51); Metamyelocyte 1 % (0-0); Monocytes 3 % (0-10); Myelocyte 3 % (0-0); Neutrophil 76 % (42-75); Platelet Adequacy Comment Platelets Normal; Polychromasia SLIGHT = 2-3 cells HPF (0-2); Total Cell Count 101
[2023-05-30 07:37] LABS: Chloride 112 mmol/L (98-107); Potassium 3.7 mmol/L (3.5-5.1); Sodium 143 mmol/L (136-145)
[2023-05-30 07:38] LABS: Calcium 8.2 mg/dL (7.8-10.44); Glucose 89 mg/dL (70-105)
[2023-05-30 07:40] LABS: Anion Gap 15 mmol/L (10-20); Carbon Dioxide 20 mmol/L (22-29)
[2023-05-30 07:42] LABS: BUN (Urea Nitrogen) 14 mg/dL (8.9-20.6)
[2023-05-30] MEDS: Sertraline 25 MG TAB PO SCH (07:49)
[2023-05-30] MEDS: Lithium Carbonate 150 MG CAP PO SCH ×2 (07:50→21:46)
[2023-05-30] MEDS: Senokot S 8.6-50 MG TAB PO SCH ×2 (07:51→21:46)
[2023-05-30] MEDS: Losartan 25 MG TAB PO SCH (07:51)
[2023-05-30] MEDS: Insulin Glargine 30 UNITS/0.3 ML VIAL SC SCH ×2 (08:13→21:46)
[2023-05-30] MEDS: Polyethylene Glycol 3350 17 GM Packet PO SCH (08:13)
[2023-05-30] MEDS: Aripiprazole 15 MG TAB PO SCH (08:13)
[2023-05-30] MEDS: Sodium Hypochlorite 0.25% Solution 480 ML BOT TOP SCH (08:14)
[2023-05-30] MEDS: Sodium Chloride 0.9% 1,000 ML IV SCH ×2 (09:17→21:53)
[2023-05-30] MEDS: Morphine 4 MG/ML VIAL SLOW IVP PRN (09:28)
[2023-05-30] MEDS ORDERED: cloNIDine 0.1 MG TAB PO SCH (10:00)
[2023-05-30] MEDS: traMADol HCl 50 MG TAB PO SCH ×3 (10:28→21:47)
[2023-05-30] MEDS: cloNIDine 0.1 MG TAB PO SCH ×3 (10:29→21:46)
[2023-05-30 13:37] LABS: Vancomycin, Trough 27.4 ug/mL
[2023-05-30 13:41] LABS: Calc. Creatinine Clearance 177 mL/min (70-130); Estimated GFR 102
[2023-05-30] MEDS ORDERED: Vancomycin (BATCH) 1.75 GM in Premix 1 BAG IVPB SCH (15:45)
[2023-05-30] MEDS: CeleCOXIB 100 MG CAP PO SCH (21:45)
[2023-05-30] MEDS: Glimepiride 4 MG TAB PO SCH (21:46)
[2023-05-30] MEDS: Fenofibrate Nanocrystallized 145 MG TAB PO SCH (21:46)
[2023-05-31] MEDS: Piperacillin/Tazobactam 3.375 GM in Sodium Chloride 0.9% 100 ML IVPB SCH ×3 (00:28→16:38)
[2023-05-31] MEDS: cloNIDine 0.1 MG TAB PO SCH ×4 (05:05→21:37)
[2023-05-31] MEDS: traMADol HCl 50 MG TAB PO SCH ×4 (05:06→21:38)
[2023-05-31] MEDS: Acetaminophen 325 MG TAB PO SCH ×4 (05:06→22:49)
[2023-05-31 05:09] LABS: Vancomycin, Random 28.8 ug/mL (See Comment)
[2023-05-31 05:11] LABS: Anion Gap 13 mmol/L (10-20); BUN (Urea Nitrogen) 19 mg/dL (8.9-20.6); Calc. Creatinine Clearance 175 mL/min (70-130); Calcium 8.1 mg/dL (7.8-10.44); Carbon Dioxide 20 mmol/L (22-29); Chloride 111 mmol/L (98-107); Estimated GFR 101; Glucose 61 mg/dL (70-105); Potassium 3.8 mmol/L (3.5-5.1); Sodium 140 mmol/L (136-145)
[2023-05-31] MEDS ORDERED: Piperacillin/Tazobactam 3.375 GM VIAL ONE (09:01)
[2023-05-31] MEDS: Senokot S 8.6-50 MG TAB PO SCH ×2 (09:33→21:37)
[2023-05-31] MEDS: Lithium Carbonate 150 MG CAP PO SCH ×2 (09:33→21:37)
[2023-05-31] MEDS: Aripiprazole 15 MG TAB PO SCH (09:33)
[2023-05-31] MEDS: Sertraline 25 MG TAB PO SCH (09:34)
[2023-05-31] MEDS: Losartan 25 MG TAB PO SCH (09:34)
[2023-05-31] MEDS: Morphine 4 MG/ML VIAL SLOW IVP PRN (09:34)
[2023-05-31] MEDS: Insulin Glargine 30 UNITS/0.3 ML VIAL SC SCH ×2 (09:37→21:44)
[2023-05-31] MEDS: Sodium Hypochlorite 0.25% Solution 480 ML BOT TOP SCH (09:37)
[2023-05-31] MEDS: Polyethylene Glycol 3350 17 GM Packet PO SCH (09:37)
[2023-05-31] MEDS: HYDROcodone/Acetaminophen 10/325 mg Tablet PO PRN (10:15)
[2023-05-31] MEDS: CeleCOXIB 100 MG CAP PO SCH ×2 (10:16→21:37)
[2023-05-31] MEDS ORDERED: Morphine 4 MG/ML VIAL SLOW IVP SCH (11:45)
[2023-05-31] MEDS: Sodium Chloride 0.9% 1,000 ML IV SCH (11:54)
[2023-05-31 16:29] LABS: Vancomycin, Random 21.7 ug/mL (See Comment)
[2023-05-31] MEDS: Glimepiride 4 MG TAB PO SCH (21:37)
[2023-05-31] MEDS: Fenofibrate Nanocrystallized 145 MG TAB PO SCH (21:37)
[2023-06-01] MEDS: Piperacillin/Tazobactam 3.375 GM in Sodium Chloride 0.9% 100 ML IVPB SCH ×3 (01:47→17:01)
[2023-06-01] MEDS: cloNIDine 0.1 MG TAB PO SCH ×4 (05:24→22:17)
[2023-06-01 05:25] LABS: Vancomycin, Random 14.6 ug/mL (See Comment)
[2023-06-01] MEDS: Acetaminophen 325 MG TAB PO SCH ×4 (05:25→22:16)
[2023-06-01] MEDS: traMADol HCl 50 MG TAB PO SCH ×4 (05:25→21:02)
[2023-06-01 05:38] LABS: Anion Gap 13 mmol/L (10-20); BUN (Urea Nitrogen) 16 mg/dL (8.9-20.6); Calc. Creatinine Clearance 172 mL/min (70-130); Calcium 8.3 mg/dL (7.8-10.44); Carbon Dioxide 22 mmol/L (22-29); Chloride 109 mmol/L (98-107); Estimated GFR 100; Glucose 56 mg/dL (70-105); Potassium 4.2 mmol/L (3.5-5.1); Sodium 140 mmol/L (136-145)
[2023-06-01] MEDS: Vancomycin 1 GM in Premix 1 BAG IVPB SCH ×2 (06:23→17:01)
[2023-06-01] MEDS: CeleCOXIB 100 MG CAP PO SCH ×2 (09:41→20:56)
[2023-06-01] MEDS: Polyethylene Glycol 3350 17 GM Packet PO SCH (09:42)
[2023-06-01] MEDS: Aripiprazole 15 MG TAB PO SCH (09:42)
[2023-06-01] MEDS: Senokot S 8.6-50 MG TAB PO SCH ×2 (09:42→20:56)
[2023-06-01] MEDS: Losartan 25 MG TAB PO SCH (09:42)
[2023-06-01] MEDS: Sertraline 25 MG TAB PO SCH (09:42)
[2023-06-01] MEDS: Lithium Carbonate 150 MG CAP PO SCH ×2 (09:42→20:56)
[2023-06-01] MEDS: Sodium Hypochlorite 0.25% Solution 480 ML BOT TOP SCH (09:43)
[2023-06-01] MEDS: Insulin Glargine 30 UNITS/0.3 ML VIAL SC SCH ×2 (09:43→20:59)
[2023-06-01] MEDS: Fenofibrate Nanocrystallized 145 MG TAB PO SCH (20:56)
[2023-06-01] MEDS: Glimepiride 4 MG TAB PO SCH (20:56)
[2023-06-02] MEDS: Piperacillin/Tazobactam 3.375 GM in Sodium Chloride 0.9% 100 ML IVPB SCH ×2 (01:09→09:54)
[2023-06-02] MEDS: traMADol HCl 50 MG TAB PO SCH ×5 (04:36→22:30)
[2023-06-02] MEDS: cloNIDine 0.1 MG TAB PO SCH ×4 (04:36→23:05)
[2023-06-02 05:29] LABS: Anion Gap 10 mmol/L (10-20); BUN (Urea Nitrogen) 14 mg/dL (8.9-20.6); Calc. Creatinine Clearance 194 mL/min (70-130); Calcium 8.4 mg/dL (7.8-10.44); Carbon Dioxide 25 mmol/L (22-29); Chloride 110 mmol/L (98-107); Estimated GFR 112; Glucose 87 mg/dL (70-105); Potassium 4.2 mmol/L (3.5-5.1); Sodium 141 mmol/L (136-145)
[2023-06-02] MEDS: Vancomycin 1 GM in Premix 1 BAG IVPB SCH (06:14)
[2023-06-02] MEDS: Acetaminophen 325 MG TAB PO SCH ×3 (06:14→16:59)
[2023-06-02] MEDS: Losartan 25 MG TAB PO SCH (09:50)
[2023-06-02] MEDS: Sertraline 25 MG TAB PO SCH (09:50)
[2023-06-02] MEDS: Senokot S 8.6-50 MG TAB PO SCH ×2 (09:52→20:58)
[2023-06-02] MEDS: Aripiprazole 15 MG TAB PO SCH (09:52)
[2023-06-02] MEDS: CeleCOXIB 100 MG CAP PO SCH ×2 (09:52→20:58)
[2023-06-02] MEDS: Polyethylene Glycol 3350 17 GM Packet PO SCH (09:53)
[2023-06-02] MEDS: Lithium Carbonate 150 MG CAP PO SCH ×2 (09:53→20:58)
[2023-06-02] MEDS: Insulin Glargine 30 UNITS/0.3 ML VIAL SC SCH ×2 (09:57→23:05)
[2023-06-02] MEDS: Sodium Hypochlorite 0.25% Solution 480 ML BOT TOP SCH (10:30)
[2023-06-02] MEDS ORDERED: Piperacillin/Tazobactam 4.5 GM in Sodium Chloride 0.9% 100 ML IVPB SCH (14:25)
[2023-06-02] MEDS: Piperacillin/Tazobactam 4.5 GM in Sodium Chloride 0.9% 100 ML IVPB SCH (17:00)
[2023-06-02] MEDS: HumaLOG 300 UNITS/3 ML VIAL SC PRN (18:23)
[2023-06-02] MEDS: HYDROcodone/Acetaminophen 5/325 mg Tablet PO PRN (20:56)
[2023-06-02] MEDS: Glimepiride 4 MG TAB PO SCH (20:58)
[2023-06-02] MEDS: Fenofibrate Nanocrystallized 145 MG TAB PO SCH (20:58)
[2023-06-03] MEDS: HYDROcodone/Acetaminophen 10/325 mg Tablet PO PRN ×2 (01:33→14:34)
[2023-06-03] MEDS: Piperacillin/Tazobactam 4.5 GM in Sodium Chloride 0.9% 100 ML IVPB SCH ×3 (01:39→18:42)
[2023-06-03] MEDS: traMADol HCl 50 MG TAB PO SCH ×2 (04:45→09:40)
[2023-06-03] MEDS: cloNIDine 0.1 MG TAB PO SCH ×4 (04:46→19:55)
[2023-06-03 06:55] LABS: #Eosinphils 0.2 thou/uL (0.0-0.7); #Monocytes 0.7 thou/uL (0.11-0.59); #Neutrophils 12.4 thou/uL (1.40-6.50); %Basophils 0.2 % (0.0-1.0); %Lymphocytes 8.3 % (21.0-51.0); %Monocytes 4.6 % (0.0-10.0); %Neutrophils 81.7 % (42.0-75.0); Hematocrit 29.2 % (42.0-52.0); Mean Corpuscular HGB CONC 30.8 g/dL (32.0-36.0); Mean Corpuscular Hemoglobin 28.1 pg (27.0-31.0); Mean Corpuscular Volume 91.3 fl (78.0-98.0); Platelet Count 364 10x3/uL (130-400); RBC Distribution Width 14.2 % (11.5-14.5); White Blood Cell (WBC) Count 15.1 10x3/uL (4.8-10.8)
[2023-06-03 07:17] LABS: Anion Gap 11 mmol/L (10-20); BUN (Urea Nitrogen) 14 mg/dL (8.9-20.6); Calc. Creatinine Clearance 196 mL/min (70-130); Calcium 8.6 mg/dL (7.8-10.44); Carbon Dioxide 25 mmol/L (22-29); Chloride 110 mmol/L (98-107); Estimated GFR 112; Glucose 86 mg/dL (70-105); Potassium 4.2 mmol/L (3.5-5.1); Sodium 142 mmol/L (136-145)
[2023-06-03] MEDS: Acetaminophen 325 MG TAB PO SCH ×5 (07:40→22:48)
[2023-06-03] MEDS: Senokot S 8.6-50 MG TAB PO SCH ×2 (09:38→19:56)
[2023-06-03] MEDS: Lithium Carbonate 150 MG CAP PO SCH ×2 (09:39→19:56)
[2023-06-03] MEDS: Polyethylene Glycol 3350 17 GM Packet PO SCH (09:39)
[2023-06-03] MEDS: Losartan 25 MG TAB PO SCH (09:39)
[2023-06-03] MEDS: Aripiprazole 15 MG TAB PO SCH (09:39)
[2023-06-03] MEDS: Sertraline 25 MG TAB PO SCH (09:40)
[2023-06-03] MEDS: CeleCOXIB 100 MG CAP PO SCH ×2 (09:42→19:55)
[2023-06-03] MEDS: Insulin Glargine 30 UNITS/0.3 ML VIAL SC SCH ×2 (09:49→19:56)
[2023-06-03 11:07] VITALS: BMI 38.4
[2023-06-03] MEDS ORDERED: Lidocaine 4% Topical Sol 50 ML BOT TOP PRN (13:32)
[2023-06-03] MEDS ORDERED: Lorazepam 2 MG/ML VIAL SLOW IVP SCH (14:00)
[2023-06-03] MEDS ORDERED: HYDROcodone/Acetaminophen 10/325 mg Tablet PO PRN (14:15)
[2023-06-03] MEDS: Morphine 4 MG/ML VIAL SLOW IVP PRN (14:25)
[2023-06-03] MEDS: Furosemide 20 MG TAB PO SCH (14:30)
[2023-06-03] MEDS: Sodium Hypochlorite 0.25% Solution 480 ML BOT TOP SCH (15:40)
[2023-06-03] MEDS: CLOZAPINE 200 MG PO SCH ×2 (18:47→19:54)
[2023-06-03] MEDS: Fenofibrate Nanocrystallized 145 MG TAB PO SCH (19:55)
[2023-06-03] MEDS: Glimepiride 4 MG TAB PO SCH (19:56)
[2023-06-04] MEDS: Piperacillin/Tazobactam 4.5 GM in Sodium Chloride 0.9% 100 ML IVPB SCH ×3 (01:41→17:09)
[2023-06-04 05:34] LABS: Anion Gap 15 mmol/L (10-20); BUN (Urea Nitrogen) 11 mg/dL (8.9-20.6); Calc. Creatinine Clearance 194 mL/min (70-130); Calcium 8.7 mg/dL (7.8-10.44); Carbon Dioxide 23 mmol/L (22-29); Chloride 111 mmol/L (98-107); Estimated GFR 112; Glucose 66 mg/dL (70-105); Sodium 145 mmol/L (136-145)
[2023-06-04] MEDS: Acetaminophen 325 MG TAB PO SCH ×5 (05:39→23:33)
[2023-06-04] MEDS: Polyethylene Glycol 3350 17 GM Packet PO SCH (09:35)
[2023-06-04] MEDS: Furosemide 20 MG TAB PO SCH ×2 (09:36→15:35)
[2023-06-04] MEDS: Aripiprazole 15 MG TAB PO SCH (09:36)
[2023-06-04] MEDS: Losartan 25 MG TAB PO SCH (09:36)
[2023-06-04] MEDS: Senokot S 8.6-50 MG TAB PO SCH ×2 (09:36→20:31)
[2023-06-04] MEDS: cloNIDine 0.1 MG TAB PO SCH ×3 (09:36→20:30)
[2023-06-04] MEDS: CeleCOXIB 100 MG CAP PO SCH ×2 (09:36→20:30)
[2023-06-04] MEDS: Sertraline 25 MG TAB PO SCH (09:37)
[2023-06-04] MEDS: Lithium Carbonate 150 MG CAP PO SCH ×2 (09:37→20:28)
[2023-06-04] MEDS: HYDROcodone/Acetaminophen 10/325 mg Tablet PO PRN ×3 (09:41→20:29)
[2023-06-04] MEDS: Insulin Glargine 30 UNITS/0.3 ML VIAL SC SCH ×2 (09:47→20:30)
[2023-06-04] MEDS: Sodium Hypochlorite 0.25% Solution 480 ML BOT TOP SCH (11:04)
[2023-06-04] MEDS: CLOZAPINE 200 MG PO SCH (20:28)
[2023-06-04] MEDS: Glimepiride 4 MG TAB PO SCH (20:29)
[2023-06-04] MEDS: Fenofibrate Nanocrystallized 145 MG TAB PO SCH (20:30)
[2023-06-05] MEDS: Piperacillin/Tazobactam 4.5 GM in Sodium Chloride 0.9% 100 ML IVPB SCH ×3 (03:54→17:38)
[2023-06-05] MEDS: Acetaminophen 325 MG TAB PO SCH ×3 (06:07→17:38)
[2023-06-05 06:45] LABS: Anion Gap 13 mmol/L (10-20); BUN (Urea Nitrogen) 16 mg/dL (8.9-20.6); Calc. Creatinine Clearance 174 mL/min (70-130); Calcium 8.6 mg/dL (7.8-10.44); Carbon Dioxide 24 mmol/L (22-29); Chloride 106 mmol/L (98-107); Estimated GFR 105; Glucose 158 mg/dL (70-105); Potassium 3.9 mmol/L (3.5-5.1); Sodium 139 mmol/L (136-145)
[2023-06-05] MEDS: Polyethylene Glycol 3350 17 GM Packet PO SCH (08:42)
[2023-06-05] MEDS: Lithium Carbonate 150 MG CAP PO SCH ×2 (08:42→20:53)
[2023-06-05] MEDS: Senokot S 8.6-50 MG TAB PO SCH ×2 (08:42→20:54)
[2023-06-05] MEDS: cloNIDine 0.1 MG TAB PO SCH ×3 (08:43→20:53)
[2023-06-05] MEDS: CeleCOXIB 100 MG CAP PO SCH ×2 (08:43→20:53)
[2023-06-05] MEDS: Losartan 25 MG TAB PO SCH (08:43)
[2023-06-05] MEDS: Sertraline 25 MG TAB PO SCH (08:44)
[2023-06-05] MEDS: Aripiprazole 15 MG TAB PO SCH (08:44)
[2023-06-05] MEDS: Insulin Glargine 30 UNITS/0.3 ML VIAL SC SCH ×2 (08:44→20:54)
[2023-06-05] MEDS: Furosemide 20 MG TAB PO SCH ×2 (08:44→13:25)
[2023-06-05] MEDS: Sodium Hypochlorite 0.25% Solution 480 ML BOT TOP SCH (08:45)
[2023-06-05] MEDS: HYDROcodone/Acetaminophen 10/325 mg Tablet PO PRN ×4 (09:22→23:44)
[2023-06-05] MEDS: CLOZAPINE 200 MG PO SCH ×2 (13:15→20:52)
[2023-06-05] MEDS ORDERED: clonazePAM 1 MG TAB PO SCH (15:15)
[2023-06-05] MEDS: Glimepiride 4 MG TAB PO SCH (20:52)
[2023-06-05] MEDS: Fenofibrate Nanocrystallized 145 MG TAB PO SCH (20:53)
[2023-06-05] MEDS: clonazePAM 1 MG TAB PO SCH (23:44)
[2023-06-06] MEDS: Acetaminophen 325 MG TAB PO SCH ×5 (00:46→23:55)
[2023-06-06] MEDS: Piperacillin/Tazobactam 4.5 GM in Sodium Chloride 0.9% 100 ML IVPB SCH ×3 (03:07→18:08)
[2023-06-06] MEDS: clonazePAM 1 MG TAB PO SCH ×4 (06:25→23:56)
[2023-06-06] MEDS: HYDROcodone/Acetaminophen 10/325 mg Tablet PO PRN ×3 (06:37→18:10)
[2023-06-06 07:23] LABS: Anion Gap 12 mmol/L (10-20); BUN (Urea Nitrogen) 17 mg/dL (8.9-20.6); Calc. Creatinine Clearance 172 mL/min (70-130); Calcium 8.7 mg/dL (7.8-10.44); Carbon Dioxide 27 mmol/L (22-29); Chloride 107 mmol/L (98-107); Estimated GFR 104; Glucose 85 mg/dL (70-105); Potassium 4.4 mmol/L (3.5-5.1); Sodium 142 mmol/L (136-145)
[2023-06-06 09:31] LABS: #Eosinphils 0.2 thou/uL (0.0-0.7); #Monocytes 0.5 thou/uL (0.11-0.59); #Neutrophils 10.7 thou/uL (1.40-6.50); %Basophils 0.2 % (0.0-1.0); %Eosinophils 1.6 % (0.0-10.0); %Lymphocytes 10.1 % (21.0-51.0); %Monocytes 3.5 % (0.0-10.0); %Neutrophils 82.5 % (42.0-75.0); Hematocrit 32.7 % (42.0-52.0); Hemoglobin 10.2 g/dL (14.0-18.0); Mean Corpuscular HGB CONC 31.2 g/dL (32.0-36.0); Mean Corpuscular Hemoglobin 28.3 pg (27.0-31.0); Mean Corpuscular Volume 90.6 fl (78.0-98.0); Mean Platelet Volume 9.1 fL (7.4-10.4); Platelet Count 353 10x3/uL (130-400); RBC Distribution Width 14.4 % (11.5-14.5); Red Blood Cell (RBC) Count 3.61 mill/uL (4.70-6.10); White Blood Cell (WBC) Count 12.9 10x3/uL (4.8-10.8)
[2023-06-06] MEDS: Insulin Glargine 30 UNITS/0.3 ML VIAL SC SCH ×2 (09:47→21:33)
[2023-06-06] MEDS: CeleCOXIB 100 MG CAP PO SCH ×2 (09:48→21:33)
[2023-06-06] MEDS: Lithium Carbonate 150 MG CAP PO SCH ×2 (09:48→21:33)
[2023-06-06] MEDS: Furosemide 20 MG TAB PO SCH (09:49)
[2023-06-06] MEDS: cloNIDine 0.1 MG TAB PO SCH ×3 (09:49→21:34)
[2023-06-06] MEDS: Sertraline 25 MG TAB PO SCH (09:49)
[2023-06-06] MEDS: Polyethylene Glycol 3350 17 GM Packet PO SCH (09:50)
[2023-06-06] MEDS: Losartan 25 MG TAB PO SCH (09:50)
[2023-06-06] MEDS: Senokot S 8.6-50 MG TAB PO SCH ×2 (09:50→21:33)
[2023-06-06] MEDS: Aripiprazole 15 MG TAB PO SCH (09:50)
[2023-06-06] MEDS: Sodium Hypochlorite 0.25% Solution 480 ML BOT TOP SCH (09:51)
[2023-06-06] MEDS: Fenofibrate Nanocrystallized 145 MG TAB PO SCH (21:33)
[2023-06-06] MEDS: Glimepiride 4 MG TAB PO SCH (21:34)
[2023-06-06] MEDS: CLOZAPINE 200 MG PO SCH (21:35)
[2023-06-07] MEDS: Piperacillin/Tazobactam 4.5 GM in Sodium Chloride 0.9% 100 ML IVPB SCH ×3 (02:54→18:46)
[2023-06-07] MEDS: clonazePAM 1 MG TAB PO SCH ×3 (06:13→18:46)
[2023-06-07] MEDS: HYDROcodone/Acetaminophen 10/325 mg Tablet PO PRN ×3 (06:13→23:18)
[2023-06-07] MEDS: Acetaminophen 325 MG TAB PO SCH ×4 (06:15→23:19)
[2023-06-07 06:20] LABS: #Eosinphils 0.2 thou/uL (0.0-0.7); #Monocytes 0.5 thou/uL (0.11-0.59); #Neutrophils 7.1 thou/uL (1.40-6.50); %Basophils 0.4 % (0.0-1.0); %Eosinophils 2.1 % (0.0-10.0); %Lymphocytes 15.2 % (21.0-51.0); %Monocytes 5.4 % (0.0-10.0); %Neutrophils 74.6 % (42.0-75.0); Hematocrit 30.3 % (42.0-52.0); Hemoglobin 9.5 g/dL (14.0-18.0); Mean Corpuscular HGB CONC 31.4 g/dL (32.0-36.0); Mean Corpuscular Hemoglobin 28.2 pg (27.0-31.0); Mean Corpuscular Volume 89.9 fl (78.0-98.0); Mean Platelet Volume 9.1 fL (7.4-10.4); Platelet Count 276 10x3/uL (130-400); RBC Distribution Width 14.2 % (11.5-14.5); Red Blood Cell (RBC) Count 3.37 mill/uL (4.70-6.10); White Blood Cell (WBC) Count 9.6 10x3/uL (4.8-10.8)
[2023-06-07 06:44] LABS: ALT (SGPT) 11 U/L (8-55); AST (SGOT) 10 U/L (5-34); Albumin 2.7 g/dL (3.5-5.0); Alkaline Phosphatase 86 U/L (40-110); Anion Gap 11 mmol/L (10-20); BUN (Urea Nitrogen) 19 mg/dL (8.9-20.6); Bilirubin, Total 0.2 mg/dL (0.2-1.2); Calc. Creatinine Clearance 192 mL/min (70-130); Calcium 8.7 mg/dL (7.8-10.44); Carbon Dioxide 25 mmol/L (22-29); Chloride 108 mmol/L (98-107); Estimated GFR 113; Globulin 2.8 g/dL (2.4-3.5); Glucose 98 mg/dL (70-105); Protein, Total 5.5 g/dL (6.0-8.3); Sodium 140 mmol/L (136-145)
[2023-06-07] MEDS: Morphine 4 MG/ML VIAL SLOW IVP PRN (07:31)
[2023-06-07] MEDS: Insulin Glargine 30 UNITS/0.3 ML VIAL SC SCH ×2 (09:55→20:42)
[2023-06-07] MEDS: CeleCOXIB 100 MG CAP PO SCH ×2 (09:55→20:39)
[2023-06-07] MEDS: Polyethylene Glycol 3350 17 GM Packet PO SCH (09:55)
[2023-06-07] MEDS: Losartan 25 MG TAB PO SCH (09:56)
[2023-06-07] MEDS: Senokot S 8.6-50 MG TAB PO SCH ×2 (09:56→20:43)
[2023-06-07] MEDS: cloNIDine 0.1 MG TAB PO SCH ×3 (09:56→20:40)
[2023-06-07] MEDS: Sodium Hypochlorite 0.25% Solution 480 ML BOT TOP SCH (09:57)
[2023-06-07] MEDS: Lithium Carbonate 150 MG CAP PO SCH ×2 (09:57→20:40)
[2023-06-07] MEDS: Sertraline 25 MG TAB PO SCH (09:57)
[2023-06-07] MEDS: Aripiprazole 15 MG TAB PO SCH (09:57)
[2023-06-07] MEDS: Glimepiride 4 MG TAB PO SCH (20:39)
[2023-06-07] MEDS: Fenofibrate Nanocrystallized 145 MG TAB PO SCH (20:40)
[2023-06-07] MEDS: CLOZAPINE 200 MG PO SCH (20:44)
[2023-06-07] MEDS: HumaLOG 300 UNITS/3 ML VIAL SC PRN (20:47)
[2023-06-08 00:37] VITALS: BP 155/81; TEMP 98.6
[2023-06-08] MEDS: clonazePAM 1 MG TAB PO SCH (00:59)
== END 2023-06-08 00:25 | DRG 853 ==
LOC: ERS 16:41 → SDC/OP 20:55 → IMCU/EMU 05-25 00:22 → SURG B 06-01 19:52
PROVIDERS: ADMIT Internal Medicine; ATTEND Family Medicine
PROC: 0VB50ZZ Excision of Scrotum, Open Approach (ICD-10-PCS; 2023-05-24)
PROC: 0JB90ZZ Excision of Buttock Subcutaneous Tissue and Fascia, Open Approach (ICD-10-PCS; 2023-05-24)
PROC: 4A043R1 Measurement of Venous Saturation, Peripheral, Percutaneous Approach (ICD-10-PCS; 2023-05-24)
PROC: 3E033XZ Introduction of Vasopressor into Peripheral Vein, Percutaneous Approach (ICD-10-PCS; 2023-05-24)
PROC: 0VBS0ZZ Excision of Penis, Open Approach (ICD-10-PCS; 2023-05-25)
PROC: 0VB50ZZ Excision of Scrotum, Open Approach (ICD-10-PCS; 2023-05-25)
PROC: 0D1L0Z4 Bypass Transverse Colon to Cutaneous, Open Approach (ICD-10-PCS; principal; 2023-05-27)
PROC: 0VB50ZZ Excision of Scrotum, Open Approach (ICD-10-PCS; 2023-05-27)
PROC: 0JB80ZZ Excision of Abdomen Subcutaneous Tissue and Fascia, Open Approach (ICD-10-PCS; 2023-05-27)
PROC: 0JB90ZZ Excision of Buttock Subcutaneous Tissue and Fascia, Open Approach (ICD-10-PCS; 2023-05-27)
PROC: 02HV33Z Insertion of Infusion Device into Superior Vena Cava, Percutaneous Approach (ICD-10-PCS; 2023-06-01)
PROC: B548ZZA Ultrasonography of Superior Vena Cava, Guidance (ICD-10-PCS; 2023-06-01)
PROC: 3E04329 Introduction of Other Anti-infective into Central Vein, Percutaneous Approach (ICD-10-PCS; 2023-06-01)
DX: A40.8 Other streptococcal sepsis (principal); E11.10 Type 2 diabetes mellitus with ketoacidosis without coma; M72.6 Necrotizing fasciitis; N49.2 Inflammatory disorders of scrotum; E11.52 Type 2 diabetes mellitus with diabetic peripheral angiopathy with gangrene; T79.7XXA Traumatic subcutaneous emphysema, initial encounter; E87.1 Hypo-osmolality and hyponatremia; R65.20 Severe sepsis without septic shock; I10 Essential (primary) hypertension; E78.5 Hyperlipidemia, unspecified; F31.9 Bipolar disorder, unspecified; F17.210 Nicotine dependence, cigarettes, uncomplicated; N49.3 Fournier gangrene; E78.1 Pure hyperglyceridemia; E66.01 Morbid (severe) obesity due to excess calories; F41.9 Anxiety disorder, unspecified; F25.9 Schizoaffective disorder, unspecified; S31.109A Unspecified open wound of abdominal wall, unspecified quadrant without penetration into peritoneal cavity, initial encounter; E87.70 Fluid overload, unspecified; Z79.4 Long term (current) use of insulin; Z79.899 Other long term (current) drug therapy; Z79.2 Long term (current) use of antibiotics; Z88.2 Allergy status to sulfonamides; Z98.890 Other specified postprocedural states; Z82.49 Family history of ischemic heart disease and other diseases of the circulatory system; Z68.37 Body mass index [BMI] 37.0-37.9, adult; Z71.84 Encounter for health counseling related to travel
CPT/HCPCS: 36415; 36416; 36569; 51702; 71045; 74177; 76870; 80048; 80053; 80178; 80202; 81001; 82010; 82805; 83036; 83605; 83690; 85025; 85610; 85730; 86850; 86900; 86901; 87040; 87070; 87076; 87077; 87086; 87186; 87205; 88305; 93005; 93976; 96361; 96365; 96366; 96368; 96375; 97139; C1751; J0171; J0692; J1100; J1170; J1650; J1815; J1885; J2175; J2250; J2270; J2272; J2405; J2543; J2704; J3010; J3370; J3370-JW; J3480; J3490; J7050; P9045; S0020